=== PATIENT | female | born 1970 | race Asian ===

== ENCOUNTER 2020-03-11 07:20 | Outpatient (CLI) | payer BC | END 2020-03-11 23:59 | disposition home or self-care (01) | LOC: LAB 07:20 | PROVIDERS: ATTEND Internal Medicine Gastroenterology | DX: Z01.812 Encounter for preprocedural laboratory examination (principal); Z11.59 Encounter for screening for other viral diseases ==

== ENCOUNTER 2020-03-14 11:27 | Day surgery (SDC) | payer BC, OTHER ==
[2020-03-14 12:20] LABS: BASOPHILS % (AUTO) 0.5 % (0.0-2.0); EOSINOPHILS # (AUTO) 0.1 K/uL (0.0-0.7); EOSINOPHILS % (AUTO) 1.7 % (0.0-7.0); HEMATOCRIT 41.9 % (31.2-41.9); HEMOGLOBIN 13.7 g/dL (10.9-14.3); LYMPHOCYTES # (AUTO) 1.9 K/uL (20.0-40.0); LYMPHOCYTES % (AUTO) 24.7 % (20.5-51.5); MEAN CORPUSCULAR HEMOGLOBIN 26.9 uug (24.7-32.8); MEAN CORPUSCULAR HGB CONC 33 g/dL (32.3-35.6); MEAN CORPUSCULAR VOLUME 82.5 fL (75.5-95.3); MONOCYTES # (AUTO) 0.5 K/uL (2.0-10.0); MONOCYTES % (AUTO) 6.8 % (0.0-11.0); NEUTROPHILS # (AUTO) 5.1 K/uL (1.8-8.9); NEUTROPHILS % (AUTO) 66.3 % (38.5-71.5); PLATELET COUNT (AUTO) 336 K/uL (179-408); RED BLOOD CELL COUNT(AUTO) 5.08 MIL/uL (3.63-4.92); WHITE BLOOD COUNT (AUTO) 7.7 K/uL (3.8-11.8)
[2020-03-14 12:26] LABS: *BLOOD, URINE 2+ (NEGATIVE); *CLARITY,URINE SLIGHTLY CLOUDY (CLEAR); *COLOR,URINE YELLOW (YELLOW); *KETONES,URINE 1+ (NEGATIVE); *UROBILINOGEN,URINE 0.2 E.U./dl (NORMAL); LEUKOCYTE ESTERASE ,URINE NEGATIVE (NEGATIVE); NITRITE, URINE NEGATIVE (NEGATIVE); PH,URINE 5.5 (5.0-8.0); UGLUCOSE NEGATIVE (NEGATIVE)
[2020-03-14 12:28] LABS: *BILIRUBIN,URIN 1+ (NEGATIVE)
[2020-03-14 12:30] LABS: CREATININE 0.7 mg/dL (0.6-1.3); POTASSIUM 3.8 mmol/L (3.5-5.1)
[2020-03-14 12:30] LABS: *URINE HCG, QUAL NEGATIVE (NEGATIVE)
[2020-03-14 12:36] LABS: BILIRUBIN,TOTAL 0.6 mg/dL (0.2-1.0); TOTAL PROTEIN, SERUM 8.3 g/dL (6.4-8.2)
[2020-03-14] MEDS ORDERED: MIDAZOLAM HCL 2 MG/2 ML VIAL ONE (13:36)
[2020-03-14 15:00] LABS: BACTERIA,URINE FEW /HPF (NONE SEEN); SQUAMOUS EPITHELIAL CELL,UR FEW /HPF (NONE SEEN); WBC,URINE 0-3 /HPF (0-3)
[2020-03-14] MEDS ORDERED: IV LACTATED RINGERS SOLUTION 1,000 ML IV PRN (15:00)
[2020-03-14] MEDS ORDERED: HYOSCYAMINE SULFATE 0.125 MG TABLET PO ONE (15:00)
[2020-03-14 15:01] LABS: URINE AMORPHOUS URATE MODERATE /HPF
== END 2020-03-14 15:25 | disposition home or self-care (01) ==
LOC: DS 11:27
PROVIDERS: ATTEND Internal Medicine Gastroenterology
DX: Z12.11 Encounter for screening for malignant neoplasm of colon (principal); K64.8 Other hemorrhoids; I10 Essential (primary) hypertension; Z79.899 Other long term (current) drug therapy; Z98.890 Other specified postprocedural states; Z98.51 Tubal ligation status
CPT/HCPCS: 36415; 84703; 85025; 85730; A4217; J2250